=== PATIENT | female | born 1955 | race Asian ===

== ENCOUNTER 2016-11-25 09:18 | Emergency (ER) | payer OTHER ==
[~2016-11-25] VITALS: Ht 152.4 cm; Wt 62.0 kg
[2016-11-25] MEDS ORDERED: ASPI81 PO (09:26)
[2016-11-25] MEDS ORDERED: INSLAN SQ (09:26)
[2016-11-25] MEDS ORDERED: GLIP10 PO (09:26)
[2016-11-25] MEDS ORDERED: LOSA25TA21 PO (09:26)
[2016-11-25] MEDS ORDERED: SIMV-259 PO (09:26)
[2016-11-25 09:37] LABS: GLUCOSE,POINT OF CARE 336 MG/DL (70-110)
[2016-11-25 11:57] VITALS: BP 149/62
== END 2016-11-25 12:08 | disposition home or self-care (01) ==
LOC: EMS 09:21
DX: B02.9 Zoster without complications (principal); M19.041 Primary osteoarthritis, right hand; E11.9 Type 2 diabetes mellitus without complications; I10 Essential (primary) hypertension; E78.00 Pure hypercholesterolemia, unspecified; Z79.4 Long term (current) use of insulin; Z79.82 Long term (current) use of aspirin
CPT/HCPCS: 82962; 99284